=== PATIENT | male | born 1965 | race Two or more races ===

== ENCOUNTER 2021-08-12 06:49 | Emergency (ER) | payer MEDICAID, OTHER ==
[~2021-08-12] VITALS: Ht 175.3 cm; Wt 95.3 kg
[2021-08-12] MEDS ORDERED: IV NS 0.9% 500 ML BAG IV ONE (07:00)
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
--- NOTE | 2021-08-12 07:09 | NUR ---
PT PROVIDED WITH WARM BLANKETS FOR COMFORT.
[2021-08-12 07:16] LABS: BASOPHILS # (AUTO) 0.1 K/uL (0.0-0.2); BASOPHILS % (AUTO) 0.6 % (0.0-2.0); EOSINOPHILS % (AUTO) 0.6 % (0.0-6.0); HEMATOCRIT 42 % (39-51); HEMOGLOBIN 13.8 g/dL (13.5-17.5); LYMPHOCYTES # (AUTO) 2.3 K/uL (0.8-4.8); LYMPHOCYTES % (AUTO) 14.6 % (20.0-44.0); MEAN CORPUSCULAR HGB CONC 33 g/dl (31.0-36.0); MEAN CORPUSCULAR VOLUME 87 fL (80-96); MONOCYTES # (AUTO) 0.8 K/uL (0.1-1.30); MONOCYTES % (AUTO) 5.4 % (2.0-12.0); NEUTROPHILS # (AUTO) 12.4 K/uL (1.8-8.9); NEUTROPHILS % (AUTO) 78.8 % (43.0-81.0); PLATELET COUNT (AUTO) 470 K/uL (150-450); RED BLOOD CELL COUNT(AUTO) 4.89 MIL/uL (4.5-6.0); WHITE BLOOD COUNT (AUTO) 15.7 K/uL (4.3-11.0)
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
--- NOTE | 2021-08-12 07:40 | NUR ---
patient came back from ct.
[2021-08-12 08:09] LABS: ALANINE AMINOTRANSFERASE 39 U/L (12-78); ALBUMIN 3.7 g/dL (3.4-5.0); ALCOHOL, BLOOD < 3 mg/dL (0-0); ALKALINE PHOSPHATASE 108 U/L (46-116); ASPARTATE AMINOTRANSFERASE 26 U/L (15-37); BILIRUBIN,DIRECT 0.1 mg/dL (0.0-0.2); BILIRUBIN,TOTAL 0.3 mg/dL (0.2-1.0); CALCIUM, SERUM 9.3 mg/dL (8.5-10.1); CARBON DIOXIDE 26 mmol/L (21-32); CHLORIDE 99 mmol/L (98-107); GLUCOSE 158 mg/dL (74-106); POTASSIUM 3.5 mmol/L (3.5-5.1); SODIUM SERUM 136 mmol/L (136-145); TOTAL PROTEIN, SERUM 8.1 g/dL (6.4-8.2); UREA NITROGEN, BLOOD 14 mg/dL (7-18)
[2021-08-12 08:10] LABS: ACETAMINOPHEN 0 ug/ml (10-30)
--- NOTE | 2021-08-12 08:22 | NUR ---
STILL UNABLE TO PROVIDE URINE AT THIS TIME
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
--- NOTE | 2021-08-12 09:30 | NUR ---
IV removed. Catheter intact and site benign. Pressure and 4x4 applied to site. No bleeding noted.Patient discharged to home in stable condition. Written and verbal after care instructions given. Patient verbalizes understanding of instruction.
[2021-08-12 09:31] VITALS: BP 148/93
== END 2021-08-12 09:31 | disposition home or self-care (01) ==
LOC: ER 06:51
DX: F15.10 Other stimulant abuse, uncomplicated (principal); I10 Essential (primary) hypertension; E78.00 Pure hypercholesterolemia, unspecified
CPT/HCPCS: 36415; 70450; 71045; 80048; 80076; 80143; 80320; 84484; 85025; 93005; 99285; J7040; G0480

== ENCOUNTER → 2022-02-07 | Emergency (ER) | payer OTHER ==
[~2022-02-07] VITALS: Ht 175.3 cm; Wt 93.9 kg
[~2022-02-07] MED LIST: ALBU18HF2 INH; ALBUTEROL FS 2.5 MG/3 ML VIAL.NEB NEB ONE; ALBUTEROL FS 2.5 MG/3 ML VIAL.NEB ONE; IBUP-1955 PO; IPRATROPIUM NEB FS 0.5 MG/2.5 ML AMPUL.NEB NEB ONE; IPRATROPIUM NEB FS 0.5 MG/2.5 ML AMPUL.NEB ONE; PRED20TA PO; predniSONE 20 MG TABLET ONE; predniSONE 20 MG TABLET PO ONE
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
--- NOTE | 2022-02-07 13:30 | NUR ---
AT BED SIDE
--- NOTE | 2022-02-07 16:05 | NUR ---
Patient discharged to home in stable condition. Written and verbal after care instructions given. Patient verbalizes understanding of instruction.
[2022-02-07 16:06] VITALS: BP 146/98
== END | disposition home or self-care (01) ==
LOC: ER 13:25
DX: J40 Bronchitis, not specified as acute or chronic (principal); M94.0 Chondrocostal junction syndrome [Tietze]; I10 Essential (primary) hypertension; E78.5 Hyperlipidemia, unspecified; F17.200 Nicotine dependence, unspecified, uncomplicated
CPT/HCPCS: 71045; 94644; 94799; 99285; 99406; J7512

== ENCOUNTER 2022-04-07 02:14 | Emergency (ER) | payer OTHER ==
[~2022-04-07] VITALS: Ht 175.3 cm; Wt 86.2 kg
[~2022-04-07 02:14] MED LIST changes: -ALBUTEROL FS 2.5 MG/3 ML VIAL.NEB NEB ONE; -ALBUTEROL FS 2.5 MG/3 ML VIAL.NEB ONE; -IPRATROPIUM NEB FS 0.5 MG/2.5 ML AMPUL.NEB NEB ONE; -IPRATROPIUM NEB FS 0.5 MG/2.5 ML AMPUL.NEB ONE; -predniSONE 20 MG TABLET ONE; -predniSONE 20 MG TABLET PO ONE
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
[2022-04-07] MEDS ORDERED: KETOROLAC TROMETHAMINE INJ 60 MG/2 ML VIAL IM ONE ×2 (02:44→03:00)
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
[2022-04-07] MEDS ORDERED: NABU-141 PO (04:37)
[2022-04-07] MEDS ORDERED: OXYC-128 PO (04:37)
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
--- NOTE | 2022-04-07 05:33 | NUR ---
Patient discharged to home in stable condition. Written and verbal after care instructions given. Patient verbalizes understanding of instruction.
[2022-04-07 05:40] VITALS: BP 138/87
== END 2022-04-07 05:41 | disposition home or self-care (01) ==
LOC: ER 02:18
DX: S52.022A Displaced fracture of olecranon process without intraarticular extension of left ulna, initial encounter for closed fracture (principal); I10 Essential (primary) hypertension; E78.5 Hyperlipidemia, unspecified; F17.200 Nicotine dependence, unspecified, uncomplicated; Z79.1 Long term (current) use of non-steroidal anti-inflammatories (NSAID); Z79.52 Long term (current) use of systemic steroids; Z79.51 Long term (current) use of inhaled steroids; W17.89XA Other fall from one level to another, initial encounter; Y93.89 Activity, other specified; Y92.89 Other specified places as the place of occurrence of the external cause; Y99.8 Other external cause status
CPT/HCPCS: 29105; 73030; 73060; 73080; 73090; 73110; 73130; 96372; 99284; J1885